=== PATIENT | female | born 1980 | race Caucasian/White ===

== ENCOUNTER → 2020-10-08 12:52 | Outpatient (CLI) | payer OTHER, SELFPAY ==
--- NOTE | 2020-10-08 12:54 | DI.MG.S_ITS ---
BILATERAL DIGITAL SCREENING MAMMOGRAM 3D/2D WITH CAD: 10/08/2020 CLINICAL: Baseline exam. Routine screening. Family history of breast cancer. No prior exams were available for comparison. The tissue of both breasts is heterogeneously dense. This may lower the sensitivity of mammography. Current study was also evaluated with a Computer Aided Detection (CAD) system. No significant masses, calcifications, or other findings are seen in either breast. IMPRESSION: NEGATIVE There is no mammographic evidence of malignancy. A 1 year screening mammogram is recommended. This exam was interpreted at Station ID: [id number]. NOTE: For mammograms, a report in lay terms will be sent to the patient. Approximately 15% of breast malignancies will not be visualized mammographically. In the management of a palpable breast mass, a negative mammogram must not discourage biopsy of a clinically suspicious lesion. Electronically Signed By: Demetris Banks acr/zohra:10/09/2020 19:09:12 letter sent: Normal Exam ACR BI-RADS Category 1: Negative 3341F
== END ==
PROVIDERS: PCP Registered Nurse; Referring Provider Registered Nurse; Visit Provider Registered Nurse
DX: Z12.31 Encounter for screening mammogram for malignant neoplasm of breast (principal); Z80.3 Family history of malignant neoplasm of breast
CPT/HCPCS: 77063; 77067

== ENCOUNTER → 2021-01-30 15:22 | Outpatient (CLI) | payer OTHER, SELFPAY ==
[2021-01-30 16:10] LABS: COVID19 -Nasal RAPID Negative (Negative)
== END ==
PROVIDERS: PCP Registered Nurse; Visit Provider Physician Assistant
DX: Z20.822 Contact with and (suspected) exposure to COVID-19 (principal)
CPT/HCPCS: 87635

== ENCOUNTER 2021-08-18 15:24 | Emergency (ER) | payer OTHER, SELFPAY ==
[2021-08-18 15:38] VITALS: BP 128/62; PULSE 60; RESP 18; TEMP 36.4; O2SAT 100
[2021-08-18 16:10] LABS: RBC Urine None Seen (0-5/HPF)
[2021-08-18 16:11] LABS: Bacteria Urine None Seen; Culture Indicated Urine Cult Not Indicated; Squamous Epithelial Cell Urine None Seen (0-5/HPF); WBC Urine 0-1/HPF (0-5/HPF)
[2021-08-18 16:48] LABS: Add Manual Diff / Slide Review NO; Alanine Aminotransferase 18 IU/L (<35); Albumin 4.2 g/dL (3.5-5.0); Albumin Globulin Ratio 1.4 (1.0-2.8); Alkaline Phosphatase 58 U/L (38-126); Aspartate Aminotransferase 25 IU/L (14-36); BUN Creatinine Ratio 22.5 (6-22); Basophils Absolute Auto 100 /uL (0-100); Basophils Percent Auto 0.7 % (0-2); Bilirubin Total 0.2 mg/dL (0.2-1.3); Blood Urea Nitrogen 16 mg/dL (7-17); Calcium 9.3 mg/dL (8.4-10.2); Carbon Dioxide 28 mmol/L (22-32); Chloride 104 mmol/L (98-107); Eosinophils Absolute Auto 200 /uL (0-450); Eosinophils Percent Auto 1.8 % (2-4); Estimated Glomerular Filt Rate > 60.0 mL/min (>60); Glucose 112 mg/dL (70-100); HEMOLYSIS < 15 (0-50); Hemoglobin 13.8 g/dL (12.0-16.0); Lymphocytes Absolute Auto 2600 /uL (1100-4500); Lymphocytes Percent Auto 28.7 % (25-40); Mean Corpuscular Hemoglobin 26.3 PG (26-34); Mean Corpuscular Volume 82.3 fL (80-100); Monocytes Absolute Auto 700 /uL (0-900); Monocytes Percent Auto 7.6 % (3-14); Neutrophils Absolute Auto 5500 /uL (1500-7000); Neutrophils Percent Auto 61.2 % (50-75); Platelet Count 276 X10^3/uL (150-400); Potassium 4.1 mmol/L (3.4-5.1); Red Blood Cell Count 5.23 X10^6/uL (4.0-5.2); Red Cell Distribution Width 13.8 % (11.6-14.8); Sodium 138 mmol/L (137-145); Total Protein 7.2 g/dL (6.3-8.2)
[2021-08-18 21:05] VITALS: BP 121/57; PULSE 54; TEMP 36.8; O2SAT 100
--- NOTE | 2021-08-18 22:02 | ED_ITS ---
HPI - Back Pain/Injury General Chief Complaint: Back Pain/Injury Stated Complaint: RIGHT SIDE OF BODY PAIN Time Seen by Provider: 08/18/21 22:01 Source: patient Mode of arrival: Ambulatory Limitations: no limitations History of Present Illness HPI Narrative: This is a 38-year-old female comes to the emergency department with complaint of fairly sudden onset right-sided body pain. Patient states that it is in the right flank. Does not really radiate to the front. She does have some worse pain with movement. She has not any fevers. No nausea or vomiting. She denies any dysuria, urgency or new frequency. She has sort of chronic urinary frequency. Patient denies any new vaginal bleeding or discharge. No diarrhea she has got some chronic constipation. Patient denies any rash or skin changes. She has not had similar symptoms in past she has not had kidney stone she is aware of. She denies any medical issues. No priors major surgeries. No allergies to medications. She smoked in the past, no ill icit. Occasional alcohol. Related Data Home Medications Medication Instructions Recorded Confirmed albuterol sulfate 90 mcg/actuation 1 puff INHALATION ONCE 09/06/20 01/30/21 aerosol inhaler (Ventolin HFA) Previous Rx's Medication Instructions Recorded albuterol sulfate 90 mcg/actuation 1 inh INHALATION Q6H PRN #6.7 g 01/30/21 aerosol inhaler (Ventolin HFA) Allergies Allergy/AdvReac Type Severity Reaction Status Date / Time No Known Drug Allergies Allergy Verified 08/18/21 15:38 Review of Systems Review of Systems ROS Unobtainable: All systems reviewed & are unremarkable except as noted in HPI and below Patient History Medical History Asthma (~1978) Endometriosis (~2017) Family History Mother Diabetes mellitus Brother Diabetes mellitus Social History Smoking Status: Former smoker Smoking Status: Former smoker Substance Use Type: does not use Exam Narrative Exam Narrative: GENERAL: Alert and oriented x three, female in mild distress. HEENT: Head normocephalic, atraumatic, EOMI, pupils reactive, face symmetric, moist mucous membranes NECK: Supple, full range of motion CARDIOVASCULAR: Regular rate and rhythm without murmurs, rubs or gallops. RESPIRATORY: Breath sounds equal bilaterally, no wheezes rales or rhonchi. ABDOMEN: Soft, nontender. Normoactive bowel sounds all 4 quadrants. No guarding or rebound, rigidity, no mass : No CVA tenderness BACK: No cervical, thoracic or lumbar vertebral point tenderness. Patient has normal range of motion. Patient's gait is normal. Muscle strength 5/5 in bilateral lower extremities. EXTREMITIES: Normal range of motion, no clubbing or edema. Neurovascularly intact NEUROLOGICAL: Cranial nerves II through XII grossly intact. Moving all extremities SKIN: Warm, dry, no petechiae, no rashes or lesions. Initial Vital Signs Initial Vital Signs: Vital Signs Temperature 97.6 F 08/18/21 15:38 Pulse Rate 60 08/18/21 15:38 Respiratory Rate 18 08/18/21 15:38 Blood Pressure 128/62 08/18/21 15:38 Pulse Oximetry 100 08/18/21 15:38 Course Orders Ordered: ED Orders 08/18/21 22:22 CT kidney ureter bladder (KUB) Stat Discontinued Medications Cyclobenzaprine HCl (Cyclobenzaprine 10 Mg Prepack) 1 bottle MISC SEEINSTR ONE Stop: 08/18/21 23:15 Last Admin: 08/18/21 23:30 Dose: 1 bottle Documented by: PREETHI Ketorolac Tromethamine (Ketorolac 30 Mg/Ml Vial) 30 mg IM NOW ONE Stop: 08/18/21 22:23 Last Admin: 08/18/21 22:27 Dose: 30 mg Documented by: PREETHI Vital Signs Vital signs: Vital Signs - 8 hr 08/18/21 15:38 08/18/21 21:05 Temperature 97.6 F 98.3 F Pulse Rate 60 54 L Respiratory Rate 18 Blood Pressure 128/62 121/57 L Pulse Oximetry 100 100 MDM - Back Pain/Injury Lab Data Result diagrams: 08/18/21 16:30 08/18/21 16:30 Labs: Lab Results 08/18/21 08/18/21 08/18/21 Range/Units 15:56 15:56 16:30 WBC 9.0 (4.5-11.0) X10^3/uL RBC 5.23 H (4.0-5.2) X10^6/uL Hgb 13.8 (12.0-16.0) g/dL Hct 43.0 (36-46) % MCV 82.3 (80-100) fL MCH 26.3 (26-34) PG MCHC 32.0 (30-36) % RDW 13.8 (11.6-14.8) % Plt Count 276 (150-400) X10^3/uL Neut % (Auto) 61.2 (50-75) % Lymph % (Auto) 28.7 (25-40) % [place] % (Auto) 7.6 (3-14) % Eos % (Auto) 1.8 L (2-4) % Baso % (Auto) 0.7 (0-2) % Neut # (Auto) 5500 (6501-7353) /uL Lymph # (Auto) 2600 (7906-9520) /uL [place] # (Auto) 700 (0-900) /uL Eos # (Auto) 200 (0-450) /uL Baso # (Auto) 100 (0-100) /uL Sodium (137-145) mmol/L Potassium (3.4-5.1) mmol/L Chloride (98-107) mmol/L Carbon Dioxide (22-32) mmol/L BUN (7-17) mg/dL Creatinine (0.52-1.04) mg/dL Estimated GFR (>60) mL/min BUN/Creatinine Ratio (6-22) Glucose (70-100) mg/dL Calcium (8.4-10.2) mg/dL Total Bilirubin (0.2-1.3) mg/dL AST (14-36) IU/L ALT (<35) IU/L Alkaline Phosphatase (38-126) U/L Total Protein (6.3-8.2) g/dL Albumin (3.5-5.0) g/dL Globulin (1.7-4.1) g/dL Albumin/Globulin Ratio (1.0-2.8) Urine RBC None seen (0-5/HPF) Urine WBC 0-1/hpf (0-5/HPF) Ur Squamous Epith Cells None seen (0-5/HPF) Urine Bacteria None seen (None) Ur Culture Indicated? Cult not indicated Urine Test Negative (Negative) 10/15/21 Range/Units 16:30 WBC (4.5-11.0) X10^3/uL RBC (4.0-5.2) X10^6/uL Hgb (12.0-16.0) g/dL Hct (36-46) % MCV (80-100) fL MCH (26-34) PG MCHC (30-36) % RDW (11.6-14.8) % Plt Count (150-400) X10^3/uL Neut % (Auto) (50-75) % Lymph % (Auto) (25-40) % [place] % (Auto) (3-14) % Eos % (Auto) (2-4) % Baso % (Auto) (0-2) % Neut # (Auto) (7792-9824) /uL Lymph # (Auto) (5803-1327) /uL [place] # (Auto) (0-900) /uL Eos # (Auto) (0-450) /uL Baso # (Auto) (0-100) /uL Sodium 138 (137-145) mmol/L Potassium 4.1 (3.4-5.1) mmol/L Chloride 104 (98-107) mmol/L Carbon Dioxide 28 (22-32) mmol/L BUN 16 (7-17) mg/dL Creatinine 0.71 (0.52-1.04) mg/dL Estimated GFR > 60.0 (>60) mL/min BUN/Creatinine Ratio 22.5 H (6-22) Glucose 112 H (70-100) mg/dL Calcium 9.3 (8.4-10.2) mg/dL Total Bilirubin 0.2 (0.2-1.3) mg/dL AST 25 (14-36) IU/L ALT 18 (<35) IU/L Alkaline Phosphatase 58 (38-126) U/L Total Protein 7.2 (6.3-8.2) g/dL Albumin 4.2 (3.5-5.0) g/dL Globulin 3.0 (1.7-4.1) g/dL Albumin/Globulin Ratio 1.4 (1.0-2.8) Urine RBC (0-5/HPF) Urine WBC (0-5/HPF) Ur Squamous Epith Cells (0-5/HPF) Urine Bacteria (None) Ur Culture Indicated? Urine Test (Negative) Urine Dip Bedside Urine Glucose Negative Bedside Urine Bilirubin - Negative Bedside Urine Ketone - Negative Urine Specific [place] 1.015 Bedside Urine Occult Blood ++ Bedside Urine pH 6.0 Bedside Urine Protein - Negative Bedside Urine Urobilinogen - Negative Bedside Urine Nitrite - Negative Bedside Urine Leukocytes - Negative Esterase Imaging Data CT scan - abdomen/pelvis: Radiologist's Impression: Launch?[address] [address] [address] Scan Report Signed Patient: Pedro Martinez MR#: [id number] : 1980 Acct:[id number] Age/Sex: 40 / F Date of Service: 08/18/21 Loc: ED Accession Number: [id number] ?? Procedure: CT kidney ureter bladder (KUB) Ordering Provider: Debby Cesar D.O. Pancreas:? Unremarkable.? ? Spleen:? Unremarkable.? ? Adrenal Glands:? Unremarkable.? ? ? Stomach and Bowel:? Stomach, small bowel loops, and colon are unremarkable.? Appendix is normal.? Moderate amount of stool noted throughout the colon.? Peritoneum:? No abnormal intraperitoneal fluid.? No free air.? ? Ventral Wall: ? No hernia.? Abdominal Nodes:? No enlarged retroperitoneal or mesenteric lymph nodes.? Vessels:? Aorta and inferior vena cava are normal in size.? ? PELVIS: Pelvic Organs:? Unremarkable.? ? Pelvic Nodes: Unremarkable. Miscellaneous: No inguinal hernias are seen. ? ? ? Bones:? Unremarkable. ? IMPRESSION: ? 1. No renal stone or hydronephrosis.? ? 2. No free fluid or free air. ? 3. Appendix is normal. ? 4. Moderate fecal loading throughout the colon.? Dictated by: Abril Gerard MD, PhD on 08/18/2021 at 22:44 ? ? Approved by: Abril Gerard MD, PhD on 08/18/2021 at 22:47?? MDM Narrative Medical decision making narrative: 40 year old female comes emergency department with fairly acute right flank pain which has been persistent for the day. There is possible hematuria a point of care but in microscopy she only has one red blood cell with no signs of infection. Patient preg negative. She does not have some increased pain with movement but is not reproducible on exam. CT abdomen pelvis is negative. Lab work which is reassuring. Discussed with patient I suspect this more be more lumbar/thoracic pain but was encouraged to return if worsening. Discharge Plan Departure Patient Disposition: Home Clinical Impression: Right flank pain Activity Restrictions/Additional Instructions: Your imaging today does show quite a bit of stool but no kidney stones or other obvious changes causing your back/flank pain this evening. You may try prune juice or similar to help stooling. Watch for any skin changes but there were no obvious signs of shingles. You may take Tylenol up to a 1000 mg every 8 hours as needed for pain and/or ibuprofen up to 800 mg every 8 hours. If this is an adequate you can try muscle relaxer 1 tablet every 8 hours as needed. This medication can make you sleepy so do not drive, perform hazardous activities or make any major decisions while taking it. Please return for fevers, new or worsening pain, lightheadedness or passing out, chest pain, shortness of breath, persistent vomiting, black or bloody stools or other new or concerning symptoms. Prescriptions: No Action albuterol sulfate [Ventolin HFA] 90 mcg/actuation HFA aerosol inhaler 1 inh inhalation Q6H PRN (Reason: shortness of breath or wheezing) Qty: 6.7 RF: 0 albuterol sulfate [Ventolin HFA] 90 mcg/actuation HFA aerosol inhaler 1 puff INHALATION ONCE RF: 0 Referrals: Jaron Smith ARNP [Primary Care Provider] -
--- NOTE | 2021-08-18 22:22 | DI.CT.S_ITS ---
Pancreas: Unremarkable. Spleen: Unremarkable. Adrenal Glands: Unremarkable. Stomach and Bowel: Stomach, small bowel loops, and colon are unremarkable. Appendix is normal. Moderate amount of stool noted throughout the colon. Peritoneum: No abnormal intraperitoneal fluid. No free air. Ventral Wall: No hernia. Abdominal Nodes: No enlarged retroperitoneal or mesenteric lymph nodes. Vessels: Aorta and inferior vena cava are normal in size. PELVIS: Pelvic Organs: Unremarkable. Pelvic Nodes: Unremarkable. Miscellaneous: No inguinal hernias are seen. Bones: Unremarkable. IMPRESSION: 1. No renal stone or hydronephrosis. 2. No free fluid or free air. 3. Appendix is normal. 4. Moderate fecal loading throughout the colon. Dictated by: Abril Gerard MD, PhD on 08/18/2021 at 22:44 Approved by: Abril Gerard MD, PhD on 08/18/2021 at 22:47
[2021-08-18] MEDS: KETOROLAC 30 MG/ML VIAL IM (22:27)
[2021-08-18 23:29] LABS: Pregnancy Test Urine Negative (Negative)
[2021-08-18] MEDS: CYCLOBENZAPRINE 10 MG PREPACK 1 BOTTLE MISC (23:30)
== END 2021-08-18 23:35 | disposition home or self-care (01) ==
PROVIDERS: Emergency Medicine; Emergency Provider Emergency Medicine; PCP Registered Nurse
DX: R10.9 Unspecified abdominal pain (principal)
CPT/HCPCS: 36415; 74176; 80053; 81003; 81015; 81025; 85025; 96372; 99284; J1885

== ENCOUNTER → 2021-12-01 14:57 | Outpatient (CLI) | payer OTHER, SELFPAY ==
--- NOTE | 2021-12-01 | DI.MG.S_ITS ---
BILATERAL DIGITAL SCREENING MAMMOGRAM 3D/2D WITH CAD: 12/01/2021 CLINICAL: Routine screening. Family history of breast cancer. Comparison is made to exam dated: 10/08/2020 [facility]. The tissue of both breasts is heterogeneously dense. This may lower the sensitivity of mammography. Current study was also evaluated with a Computer Aided Detection (CAD) system. No significant masses, calcifications, or other findings are seen in either breast. There has been no significant interval change. IMPRESSION: NEGATIVE There is no mammographic evidence of malignancy. A 1 year screening mammogram is recommended. This exam was interpreted at Station ID: [id number]. NOTE: For mammograms, a report in lay terms will be sent to the patient. Approximately 15% of breast malignancies will not be visualized mammographically. In the management of a palpable breast mass, a negative mammogram must not discourage biopsy of a clinically suspicious lesion. Electronically Signed By: Demetris Banks acr/zohra:12/01/2021 16:11:29 letter sent: Normal Exam ACR BI-RADS Category 1: Negative 3341F
== END ==
PROVIDERS: PCP Registered Nurse; Referring Provider Registered Nurse; Visit Provider Registered Nurse
DX: Z12.31 Encounter for screening mammogram for malignant neoplasm of breast (principal); Z80.3 Family history of malignant neoplasm of breast
CPT/HCPCS: 77063; 77067